=== PATIENT | female | born 1995 | race African-American/Black ===

== ENCOUNTER 2018-08-25 11:29 | Observation (INO) | payer MEDICAID ==
[~2018-08-25] VITALS: Ht 157.5 cm; Wt 87.5 kg
== END 2018-08-25 13:35 | disposition home or self-care (01) ==
LOC: L&D 11:29
PROVIDERS: ADMIT Specialist; ATTEND Specialist
DX: O36.8130 Decreased fetal movements, third trimester, not applicable or unspecified (principal); Z3A.36 36 weeks gestation of pregnancy
CPT/HCPCS: 76805; 76818; 99281; G0378

== ENCOUNTER 2018-08-31 08:47 | Inpatient (IN) | payer MEDICAID ==
[~2018-08-31] VITALS: Ht 157.5 cm; Wt 52.6 kg
[2018-08-31] MEDS ORDERED: LACTATED RINGERS 1,000 ML IV SCH (10:13)
[2018-08-31] MEDS ORDERED: DEXT 5%/LR + PITOCIN 20UNITS/L 1,000 ML IV SCH ×2 (10:13→17:59)
[2018-08-31] MEDS ORDERED: BUTORPHANOL TARTRATE 2 MG/ML VIAL IV PRN (10:15)
[2018-08-31] MEDS ORDERED: NALOXONE HCL 0.4 MG/ML 1ML VIAL IM PRN (10:15)
[2018-08-31] MEDS ORDERED: METHYLERGONOVINE MALEATE 0.2 MG/ML IM PRN ×2 (10:15→18:00)
[2018-08-31] MEDS ORDERED: LIDOCAINE HCL 1% 20ML VIAL (Pyxis) INJ INFIL SCH (10:15)
[2018-08-31] MEDS ORDERED: CARBOPROST TROMETHAMINE 250 MCG/ML AMPUL IM PRN (10:15)
[2018-08-31] MEDS ORDERED: BUTORPHANOL TARTRATE 2 MG/ML VIAL ONE (10:25)
[2018-08-31] MEDS ORDERED: MISOPROSTOL 100MCG TABLET VG SCH (10:30)
[2018-08-31 10:58] LABS: CLARITY URINE CLOUDY (CLEAR); COLOR URINE AMBER (YELLOW); KETONES URINE TRACE (NEGATIVE); LEUKOCYTE ESTERASE URINE 1+ (NEGATIVE); NITRITE URINE NEGATIVE (NEGATIVE); OCCULT BLOOD URINE 2+ (NEGATIVE); PROTEIN URINE 1+ (NEGATIVE); SPECIFIC GRAVITY URINE 1.023 (1.005-1.030)
[2018-08-31] MEDS ORDERED: PENICILLIN G POTASSIUM 5 MMU in DEXT 5% WATER 100 ML IV NR (11:00)
[2018-08-31 11:09] LABS: BASOPHILS % 0.3 % (0.0-2.0); EOSINOPHILS % 0.4 % (0.0-5.0); HEMATOCRIT. 33.9 % (36.0-48.0); HEMOGLOBIN. 11.2 g/dL (12.0-16.0); LYMPHOCYTES % 33.2 % (20.0-50.0); MEAN CORPUSCULAR HEMOGLOBIN 25.5 pg (28.0-32.0); MEAN CORPUSCULAR VOLUME 77.1 fL (81.0-99.0); MEAN PLATELET VOLUME 7.4 fl (7.4-10.4); MONOCYTES % 7.7 % (2.0-8.0); NEUTROPHILS % 58.4 % (40.0-76.0); PLATELET 217 x1000/uL (130-400); RED CELL DISTRIBUTION WIDTH 15.8 % (11.6-14.6)
[2018-08-31 11:23] LABS: PARTIAL THROMBOPLASTIN TIME 29.2 sec (23.4-31.0); PROTHROMBIN TIME 9.9 sec (9.1-11.1)
[2018-08-31 12:02] LABS: *BENZODIAZEPINES SCREEN URINE NEGATIVE (NEGATIVE); *COCAINE SCREEN URINE NEGATIVE (NEGATIVE); METHADONE URINE SCREEN NEGATIVE (NEGATIVE); OPIATES URINE SCREEN NEGATIVE (NEGATIVE)
[2018-08-31 12:03] LABS: *AMPHETAMINES SCREEN URINE NEGATIVE (NEGATIVE); *BARBITURATES SCREEN URINE NEGATIVE (NEGATIVE); CANNABINOID URINE SCREEN NEGATIVE (NEGATIVE); PHENCYCLIDINE URINE SCREEN NEGATIVE (NEGATIVE)
[2018-08-31] MEDS ORDERED: D5W/LR + PITOCIN 20UNITS/1000ML PREMIX IV ONE (13:02)
[2018-08-31] MEDS ORDERED: PENICILLIN G POTASSIUM 2.5 MMU in DEXTROSE 5% WATER 50 ML IV SCH (15:00)
[2018-08-31 15:20] VITALS: BP 101/61
[2018-08-31 17:30] VITALS: BP 102/61
[2018-08-31 17:46] LABS: HEPATITIS B SURFACE ANTIGEN NEGATIVE
[2018-08-31] MEDS ORDERED: IBUPROFEN 400MG TABLET PO PRN (18:00)
[2018-08-31] MEDS ORDERED: LANOLIN OINT 0.25 GM TUBE TOP PRN (18:00)
[2018-08-31] MEDS ORDERED: IBUPROFEN 800MG TABLET PO PRN (18:00)
[2018-08-31] MEDS ORDERED: RHO(D) IMMUNE GLOBULIN 300 MCG/SYR IM PRN (18:00)
[2018-08-31 20:00] VITALS: BP 114/79
[2018-08-31] MEDS ORDERED: DOCUSATE SODIUM 100MG CAPSULE PO SCH (21:00)
[2018-09-01] VITALS: BP 116/69
[2018-09-01 04:00] VITALS: BP 107/66
[2018-09-01 07:22] LABS: BASOPHILS % 0.2 % (0.0-2.0); EOSINOPHILS % 0.5 % (0.0-5.0); HEMATOCRIT. 30.9 % (36.0-48.0); HEMOGLOBIN. 10.4 g/dL (12.0-16.0); LYMPHOCYTES % 30.1 % (20.0-50.0); MEAN CORPUSCULAR HEMOGLOBIN 26.1 pg (28.0-32.0); MEAN CORPUSCULAR VOLUME 77.7 fL (81.0-99.0); MEAN PLATELET VOLUME 7.8 fl (7.4-10.4); MONOCYTES % 8.6 % (2.0-8.0); NEUTROPHILS % 60.6 % (40.0-76.0); PLATELET 212 x1000/uL (130-400); RED BLOOD CELL COUNT 3.98 mill/uL (4.2-5.4); RED CELL DISTRIBUTION WIDTH 15.6 % (11.6-14.6)
[2018-09-01 07:56] VITALS: BP 108/50
[2018-09-01] MEDS ORDERED: PRENATAL VIT/FE FUMARATE/FA TABLET PO SCH (09:00)
[2018-09-01 16:15] VITALS: BP 104/64
[2018-09-01 21:25] VITALS: BP 108/65
[2018-09-01 22:00] VITALS: BP 116/58
[2018-09-02 04:30] VITALS: BP 104/68
[2018-09-02 07:30] VITALS: BP 109/69
== END 2018-09-02 11:30 | disposition home or self-care (01) | DRG 560 ==
LOC: L&D 08:47 → OBSVTOIN 08:47 → 8 EST LDRP 14:28 → 8EST 15:00
PROVIDERS: ADMIT Obstetrics & Gynecology; ATTEND Obstetrics & Gynecology
PROC: 10E0XZZ Delivery of Products of Conception, External Approach (ICD-10-PCS; principal; 2018-08-31 11:53)
DX: O77.0 Labor and delivery complicated by meconium in amniotic fluid (principal); D62 Acute posthemorrhagic anemia; O70.0 First degree perineal laceration during delivery; Z3A.37 37 weeks gestation of pregnancy; Z37.0 Single live birth; O90.81 Anemia of the puerperium
CPT/HCPCS: 36415; 80305; 86592; 86703; 86762; 86850; 86900; 87340; 99281; J0595; J2540; J2590; J7060; J7120

== ENCOUNTER 2022-03-20 20:08 | Emergency (ER) | payer MEDICAID ==
[~2022-03-20] VITALS: Ht 175.3 cm; Wt 72.0 kg
[2022-03-20 23:00] VITALS: BP 110/80
[2022-03-20 23:07] LABS: BASOPHILS % 0.2 % (0.0-2.0); EOSINOPHILS % 0.3 % (0.0-5.0); HEMATOCRIT. 38.9 % (36.0-48.0); HEMOGLOBIN. 12.8 g/dL (12.0-16.0); LYMPHOCYTES % 16.6 % (20.0-50.0); MEAN CORPUSCULAR HEMOGLOBIN 27.5 pg (28.0-32.0); MEAN CORPUSCULAR VOLUME 83.6 fL (81.0-99.0); MONOCYTES % 8.4 % (2.0-8.0); NEUTROPHILS % 74.5 % (40.0-76.0); PLATELET 255 x1000/uL (130-400); RED BLOOD CELL COUNT 4.66 mill/uL (4.2-5.4); RED CELL DISTRIBUTION WIDTH 14.3 % (11.6-14.6)
[2022-03-20 23:14] LABS: CHLORIDE 103 mEq/L (98-107)
[2022-03-20 23:21] LABS: ETHANOL BLOOD < 10 mg/dL
[2022-03-21 00:43] LABS: *AMPHETAMINES SCREEN URINE NEGATIVE (NEGATIVE); *BARBITURATES SCREEN URINE NEGATIVE (NEGATIVE); *BENZODIAZEPINES SCREEN URINE NEGATIVE (NEGATIVE); *COCAINE SCREEN URINE NEGATIVE (NEGATIVE); METHADONE URINE SCREEN NEGATIVE (NEGATIVE); OPIATES URINE SCREEN NEGATIVE (NEGATIVE); PHENCYCLIDINE URINE SCREEN NEGATIVE (NEGATIVE)
[2022-03-21 00:50] LABS: CANNABINOID URINE SCREEN PRESUMTIVE POSITIVE (NEGATIVE)
== END 2022-03-21 02:29 | disposition left against medical advice (07) ==
LOC: ER 20:08
DX: R45.851 Suicidal ideations (principal); F32.9 Major depressive disorder, single episode, unspecified
CPT/HCPCS: 36415; 80053; 80305; 80307; 80320; 80329; 81025; 85025; 93005; 99284; G0480

== ENCOUNTER 2024-07-30 18:39 | Emergency (ER) | payer MEDICAID ==
[~2024-07-30] VITALS: Ht 157.5 cm; Wt 54.0 kg
[2024-07-30 18:45] VITALS: BP 150/111; PULSE 84; RESP 16; TEMP 98.3; O2SAT 98
== END 2024-07-30 22:56 | disposition left against medical advice (07) ==
LOC: ER 18:39
DX: R53.83 Other fatigue (principal); F32.A Depression, unspecified
CPT/HCPCS: 93005; 99283

== ENCOUNTER 2024-08-09 07:49 | Emergency (ER) | payer MEDICAID ==
[~2024-08-09] VITALS: Ht 157.5 cm; Wt 58.0 kg
[2024-08-09 07:57] VITALS: O2SAT 100
[2024-08-09 07:59] VITALS: O2SAT 99
[2024-08-09 09:15] VITALS: BP 140/92; PULSE 97; RESP 18; TEMP 98.4
[2024-08-09] MEDS: IBUPROFEN 400MG TABLET PO ONE (09:15)
[2024-08-09] MEDS: ACETAMINOPHEN 325MG TABLET PO ONE (09:15)
[2024-08-09] MEDS: TETANUS, DIPHTHERIA, PERTUSSIS VAC/PF 0.5ML (>10YR OLD) IM ONE (09:27)
== END 2024-08-09 09:50 | disposition home or self-care (01) ==
LOC: ER 07:49
DX: S42.302A Unspecified fracture of shaft of humerus, left arm, initial encounter for closed fracture (principal); Y04.0XXA Assault by unarmed brawl or fight, initial encounter; Y93.89 Activity, other specified; Y92.89 Other specified places as the place of occurrence of the external cause; Y99.8 Other external cause status
CPT/HCPCS: 73030; 73060; 73070; 73090; 90715; 29105; 90471; 99284; Z7610; A4565